=== PATIENT | female | born 1985 | race Caucasian/White ===

== ENCOUNTER 2017-04-09 16:30 | Emergency (ER) | payer SELFPAY ==
[2017-04-09 17:06] LABS: Bilirubin Negative (Negative); Blood, Urine Trace (Negative); Glucose, Urine (Dipstick) Negative (Negative); Ketone, Urine Negative (Negative); Nitrite Negative (Negative); Protein, Urine (Dipstick) Negative (Neg-Trace); Urobilinogen 0.2 mg/dL (0.2-1.0)
[2017-04-09 17:09] LABS: Bacteria/HPF 3+ HPF (None Seen); Hyaline Casts/LPF 4-6 HYALINE CAST LPF (0-3 Hyaline)
[2017-04-09 17:41] LABS: #Eosinphils 0.1 thou/uL (0.0-0.7); #Lymphocytes 1.6 thou/uL (1.20-3.40); #Monocytes 0.8 thou/uL (0.11-0.59); #Neutrophils 6.2 thou/uL (1.40-6.50); %Basophils 0.5 % (0.0-1.0); %Lymphocytes 18.8 % (21.0-51.0); %Monocytes 8.7 % (0.0-10.0); Hematocrit 42.9 % (36.0-47.0); Mean Platelet Volume 7.5 fL (7.4-10.4); Red Blood Cell (RBC) Count 4.45 mill/uL (4.20-5.40); White Blood Cell (WBC) Count 8.7 thou/uL (4.8-10.8)
[2017-04-09 18:05] LABS: ALT (SGPT) 10 U/L (8-55); AST (SGOT) 17 U/L (5-34); Alkaline Phosphatase 61 U/L (40-150); Anion Gap 8 mmol/L (10-20); BUN (Urea Nitrogen) 6 mg/dL (7.0-18.7); Bilirubin, Total 0.5 mg/dL (0.2-1.2); Calc. Creatinine Clearance 0 mL/min (70-130); Calcium 9.8 mg/dL (7.8-10.44); Carbon Dioxide 30 mmol/L (22-29); Chloride 102 mmol/L (98-107); Estimated GFR-MDRD Greater than 90; Protein, Total 7.3 g/dL (6.0-8.3)
[2017-04-09] MEDS ORDERED: Ketorolac Tromethamine 30 MG/ML VIAL ONE (18:13)
[2017-04-09] MEDS ORDERED: Ondansetron HCl/PF 4 MG/2 ML Vial ONE (18:13)
[2017-04-09] MEDS ORDERED: Morphine 10 MG/ML VIAL ONE (19:04)
--- NOTE | 2017-04-09 19:28 | CT ---
CT ABDOMEN AND PELVIS NONCONTRAST: HISTORY: Right flank pain. FINDINGS: Each renal collecting system and ureter are decompressed without stone evident. The urinary bladder is incompletely distended. Lack of contrast limits evaluation for other abnormalities. Contraceptive device is noted within th e endometrial cavity. IMPRESSION: No CT evidence of urinary tract obstruction or calcification. POS: [facility]
== END 2017-04-09 19:48 | disposition home or self-care (01) ==
LOC: ERS 16:30
DX: N12 Tubulo-interstitial nephritis, not specified as acute or chronic (principal); F41.9 Anxiety disorder, unspecified; F32.9 Major depressive disorder, single episode, unspecified; Z79.899 Other long term (current) drug therapy
CPT/HCPCS: 74176; 80053; 81003; 81015; 81025; 85025; 87077; 87086; 87186; 96361; 96374; 96375; J1885; J2270; J2405